=== PATIENT | female | born 1970 | race Caucasian/White ===

== ENCOUNTER 2019-06-01 23:07 | Emergency (ER) | payer BC, SELFPAY ==
[2019-06-01 23:11] VITALS: BP 142/82; PULSE 91; RESP 16; TEMP 36.4; O2SAT 100
--- NOTE | 2019-06-01 23:28 | W.ED.GENAD ---
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 Primary Care Provider: Hillary Leiva ED Provider: Jaycob Arias Home Meds and New Rx's Prescriptions: Continued ferrous sulfate [iron] 325 mg (65 mg iron) Tablet 325 mg PO DAILY RF: 0 Discharge Instructions Additional Instructions: Your exam showed a small amount of bleeding your lab work did not show any concerning findings Follow up with women's wellness within 1 week if you have severe worsening pain, bleeding, lightheaded, chest pain or difficulty breathing return to the emergency department Medical Decision Making 48 yo female who denies chronic medical problems comes in with vaginal bleeding. She states she has been spotting lightly intermittently for 6 months but tonight had 1-2 large clots and more bleeding so came here. Denies dizziness/lightheadedness, sob, has some pelvic cramping but no pain and has no tendeness on abdominal exam. Apepars well systemically on exam. Suspect fibroid vs possible uterine cancer or dysfunctional uterine bleeding. Will obtain lab work and perform speculum exam With nurse data software engineer Bisi Mccray I performed speculum exam and showed small amount of blood coming from closed os no significant blood in vaginal vault or clots. Labs unremarkable and remains stable. FEel she can be d/c'd and f/u with women's wellness this week for further w/u. Return precautions given Differential Diagnosis Differential Diagnosis: fibroid, cancer, dysfunctional uterine bleeding HPI General Mode of arrival: ambulatory. Date/Time Provider Initiated Documentation: 06/01/19 23:10. Limitations to Documentation: no limitations. Information obtained by: patient. History of Present Illness 48 year old F presents to the emergency department with the chief complaint of vaginal bleeding, described as moderate, Patient started experiencing this hour(s) (2) and it has been constant. No relieving factors improve symptom(s), No exacerbating factors reported . Patient notes no other symptoms.. 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 Review of Systems All systems reviewed & are unremarkable except as noted in HPI and below Constitutional Constitutional: Denies chills and Denies fever(s) ENT Ears, Nose, Mouth, and Throat: Denies change in voice Cardiovascular Cardiovascular: Denies chest pain and Denies dyspnea Respiratory Respiratory: Denies cough and Denies dyspnea Gastrointestinal Gastrointestinal: Denies abdominal pain, Denies nausea and Denies vomiting Genitourinary Genitourinary: Denies dysuria Musculoskeletal Musculoskeletal: Denies joint swelling Integumentary/Breasts Skin/Breast: Denies rash PFSH Social History Smoking/Tobacco Use Status: Never Alcohol Intake: never Drug use: Never Substance use type: does not use Do you feel safe at home: Yes Do you feel safe in your relationship?: Yes Exam Const General: no acute distress Orientation: alert HENMT Head: normal to inspection Ears: external ears normal General nose exam: external nose normal Mouth: moist mucous membranes Eyes General: appearance normal, both eyes and all related structures Neck Neck: normal visual inspection Resp Effort & Inspection: normal respiratory effort and able to speak in complete sentences Cardio Rate: regular rate Skin General skin exam: no rashes or lesions noted Neuro General: alert and oriented x3 Extrem General: normal to inspection Psych Mental Status: mental status grossly normal Course Vital Signs Vital signs: Vital Signs Temperature 36.4 C L 06/01/19 23:11 Pulse 91 H 06/01/19 23:11 Respiratory Rate 16 06/01/19 23:11 Blood Pressure 142/82 H 06/01/19 23:11 Pulse Oximetry 100 06/01/19 23:11 Temperature 36.4 C L 06/01/19 23:11 Temperature Source Skin 06/01/19 23:11 Pulse 91 H 06/01/19 23:11 Respiratory Rate 16 06/01/19 23:11 Respiratory Effort 06/01/19 23:17 Blood Pressure 142/82 H 06/01/19 23:11 Pulse Oximetry 100 06/01/19 23:11 Oxygen Delivery Method Room Air 06/01/19 23:11 Oxygen Flow Rate 0 06/01/19 23:11 Pain Level 2 06/01/19 23:17
[2019-06-01 23:39] LABS: Abs Immature Grans 0.02 k/cumm (0.0-0.09); Absolute Basophil Count 0.03 k/cumm (0.0-0.2); Absolute Eosinophil Count 0.18 k/cumm (0.0-0.7); Absolute Lymphocyte Count 2.65 k/cumm (1.2-3.4); Absolute Monocyte Count 0.49 k/cumm (0.11-0.7); Absolute Neutrophil Count 5.14 k/cumm (1.2-6.7); Basophils % 0.4; Eosinophils % 2.1; HCT 34.6 % (36.0-46.0); Immature Grans % 0.2; Lymphocytes % 31.1; Mean Corp. HGB Concentration 31.8 g/dL (32.0-36.0); Mean Corpuscular Volume 78.6 fL (80-95); Mean Platelet Volume 9.8 fL (8.0-11.0); Monocytes % 5.8; Neutrophils % 60.4; Platelet Count 292 x1000/uL (130-400); RBC Distribution Width 16.2 % (11.7-14.6); White Blood Cell Count 8.51 k/cumm (4.4-10.8)
[2019-06-01 23:51] LABS: ALT 26 U/L (14-59); AST 14 U/L (15-37); Albumin 3.6 g/dL (3.4-5.0); Alkaline Phosphatase 64 U/L (46-116); Anion Gap 10.2 mmol/L (3-11); BUN 16 mg/dL (7-18); Bilirubin, Total 0.2 mg/dL (0.2-1.0); CO2 26.8 mmol/L (21.0-32.0); CREATININE 0.96 mg/dL (0.55-1.02); Calcium 8.8 mg/dL (8.5-10.1); Chloride 102 mmol/L (98-107); Glucose 160 mg/dL (74-106); Sodium 139 mmol/L (136-145); Total Protein 7.6 g/dL (6.4-8.2)
[2019-06-01 23:56] LABS: PTT Activated 22.3 sec (21.0-31.4); Prothrombin Time 10.2 sec (9.3-11.0)
== END 2019-06-02 00:10 | disposition home or self-care (01) ==
PROVIDERS: Emergency Provider Emergency Medicine; PCP Nurse Practitioner Family
DX: N93.9 Abnormal uterine and vaginal bleeding, unspecified (principal); R10.2 Pelvic and perineal pain
CPT/HCPCS: 36415; 80053; 81025; 86900; 86901; 99284; 85025; 85610; 85730; 99283

== ENCOUNTER 2019-06-09 13:38 | Outpatient (CLI) | payer BC, SELFPAY ==
[2019-06-09 14:01] LABS: HCT 25.6 % (36.0-46.0); HGB 7.8 g/dL (12.0-15.5)
[2019-06-09 15:19] LABS: TSH (W/Ref FT4) 3.34 uIU/mL (0.36-3.74)
== END 2019-06-09 13:58 ==
PROVIDERS: PCP Nurse Practitioner Family; Visit Provider Nurse Practitioner Family
DX: D64.9 Anemia, unspecified (principal); N93.9 Abnormal uterine and vaginal bleeding, unspecified
CPT/HCPCS: 36415; 84443; 85014; 85018

== ENCOUNTER 2019-06-11 16:17 | Outpatient (CLI) | payer BC, SELFPAY | END 2019-06-11 16:37 | PROVIDERS: PCP Nurse Practitioner Family; Visit Provider Obstetrics & Gynecology Gynecology | DX: D64.9 Anemia, unspecified (principal) | CPT/HCPCS: 36415; 86850; 86900; 86901; 86920 ==

== ENCOUNTER 2019-06-11 16:25 | Outpatient (REF) | payer BC, SELFPAY ==
--- NOTE | 2019-06-11 16:00 | ENDOMET_PTH ---
PATIENT: Garima Acosta LOC: [facility] U#:[id number] AGE/SX: 48/F ROOM: RE06/11/[address]: Paola Evans : 1970 BED: DIS: 06/11/2019 SPEC #: [id number] RECD: 06/11/19 18:07 STATUS: LUZMA REDel #: [id number] RIGOBERTO: 06/11/19 16:[address]: Paola Evans DEPT: Surgical Specimen RECD BY: Samira Eugene ENTERED: 06/11/19 18:07 SP TYPE: Endomet OTHR DR: Hillary Leiva Tissues: 1 - ENDOMETRIUM BX/VILMA Procedures: GROSS AND MICRO LEVEL 4 Comments: [id number]
== END 2019-06-11 16:45 ==
LOC: LBN 16:25
PROVIDERS: PCP Nurse Practitioner Family; Visit Provider Obstetrics & Gynecology Gynecology
DX: N85.01 Benign endometrial hyperplasia (principal); N93.8 Other specified abnormal uterine and vaginal bleeding
CPT/HCPCS: 88305

== ENCOUNTER 2019-06-12 01:15 | Outpatient (RCR) | payer BC, SELFPAY ==
[2019-06-12] VITALS (12 sets, daily range): BP systolic 116–132; BP diastolic 69–79; PULSE 82–100; RESP 18–19; TEMP 36.1–37.3; O2SAT 99–100
[2019-06-12] MEDS: Normal Saline Flush 10 ML SYR 20 ML IVP (08:30)
== END 2019-07-01 23:59 | disposition home or self-care (01) ==
LOC: INF 01:15
PROVIDERS: PCP Nurse Practitioner Family; Visit Provider Obstetrics & Gynecology Gynecology
DX: D64.9 Anemia, unspecified (principal)
CPT/HCPCS: 36415; 36430; 86850; 86900; 86901; 86920; P9016

== ENCOUNTER 2019-06-18 00:58 | Outpatient (CLI) | payer BC, SELFPAY ==
--- NOTE | 2019-06-18 07:50 | DI.US_ITS ---
EXAM: US PELVIS TRANSVAGINAL CLINICAL HISTORY: abnormal vaginal bleeding, N93.9 TECHNIQUE: Ultrasound performed using standard protocol. Transabdominal and transvaginal exams wer e performed. COMPARISON: PELVIS TRANSVAG from 09/06/2016 FINDINGS: The uterus measures 13 x 8.2 x 10.10 cm. No focal fibroids are seen. The endometrial stripe is marked ly thickened at 4.7 cm. There is a small hypoechoic region within the endometrium which could represe nt a small amount of blood. Ovaries are normal in size and appearance. There is no evidence of torsio n. The kidneys are unremarkable. There is no free fluid. IMPRESSION: Markedly thickened endometrium measuring 4.7 cm.
== END 2019-06-18 01:18 ==
PROVIDERS: PCP Nurse Practitioner Family; Visit Provider Nurse Practitioner Family
DX: N93.9 Abnormal uterine and vaginal bleeding, unspecified (principal); R93.89 Abnormal findings on diagnostic imaging of other specified body structures
CPT/HCPCS: 76830; 76856

== ENCOUNTER 2019-08-07 13:47 | Outpatient (CLI) | payer BC, SELFPAY ==
[2019-08-07 14:43] LABS: HCT 39.3 % (36.0-46.0); HGB 12.5 g/dL (12.0-15.5); Mean Corp. HGB Concentration 31.8 g/dL (32.0-36.0); Mean Corpuscular Hemoglobin 25.3 pg (27.0-33.0); Mean Corpuscular Volume 79.4 fL (80-95); Mean Platelet Volume 9.7 fL (8.0-11.0); Platelet Count 276 x1000/uL (130-400); RBC 4.95 m/cumm (4.00-5.20); White Blood Cell Count 8.68 k/cumm (4.4-10.8)
[2019-08-07 15:46] LABS: BUN 16 mg/dL (7-18); CREATININE 0.97 mg/dL (0.55-1.02); Calcium 8.8 mg/dL (8.5-10.1); Chloride 102 mmol/L (98-107); Glucose 177 mg/dL (74-106); Sodium 140 mmol/L (136-145)
== END 2019-08-07 14:07 ==
PROVIDERS: PCP Nurse Practitioner Family; Visit Provider Obstetrics & Gynecology Gynecology
DX: N93.9 Abnormal uterine and vaginal bleeding, unspecified (principal); Z01.818 Encounter for other preprocedural examination; Z01.812 Encounter for preprocedural laboratory examination
CPT/HCPCS: 36415; 80048; 85027

== ENCOUNTER 2019-08-14 11:52 | Day surgery (SDC) | payer BC, SELFPAY ==
[2019-08-07 13:57] VITALS: BP 147/88; PULSE 71; RESP 18; TEMP 37.1; O2SAT 97
[2019-08-14] VITALS (7 sets, daily range): BP systolic 111–151; BP diastolic 43–93; PULSE 75–94; RESP 11–18; TEMP 36.6–36.9; O2SAT 99–100
[2019-08-14] MEDS: Lactated Ringers 1,000 ML 125 ML IV (12:28)
[2019-08-14] MEDS: Bupivacaine 0.25% Pres-Free 30 ML VIAL (13:45)
--- NOTE | 2019-08-14 14:00 | ENDO_PTH ---
PATIENT: Garima Acosta LOC: [facility] U#:[id number] AGE/SX: 49/F ROOM: RE08/14/[address]: Paola Evans : 1970 BED: DIS: 08/14/2019 SPEC #: [id number] RECD: 08/14/19 16:55 STATUS: LUZMA FERGUSON #: [id number] RIGOBERTO: 08/14/19 14:[address]: Paola Evans DEPT: Surgical Specimen RECD BY: Samira Eugene ENTERED: 08/14/19 16:55 SP TYPE: Endo OTHR DR: Hillary Leiva Tissues: 1 - ENDOCERVICAL BX/CURRETTE Procedures: GROSS AND MICRO LEVEL 4 Comments: [id number]
[2019-08-14] MEDS: HYDROcodone 5/Acetaminophen 325 TAB PO (15:34)
--- NOTE | 2019-08-21 12:43 | W.PM.OP ---
Date of service: 08/21/19 Time of Service: 12:43 Operative Note Operative Note DATE OF PROCEDURE: 08/14/19 PRE-OP DIAGNOSIS: Abnormal uterine bleeding Endometrial polyp PROCEDURE: Diagnostic hysteroscopy endometrial polyp removal and hydrothermal endometrial ablation SURGEON: Paola Evans ANESTHESIA: ZONIA (Laryngeal mask anesthesia) ESTIMATED BLOOD LOSS: 10 PATHOLOGY: other (Endometrial polyp to pathology) COMPLICATIONS: None Patient was transported to: PACU Patient's condition: stable Indications: 49-year-old G5, P5 female with history of abnormal uterine bleeding treated with medical therapy with continued breakthrough bleeding and a previously benign endometrial biopsy Findings: Solitary endometrial polyp on a stalk at the uterine fundus with thickened endometrial lining Procedure Description: Patient was taken to the operating room she placed in the dorsal supine position and laryngeal mask anesthesia was administered without difficulty. She was then placed in the dorsal lithotomy in yellowfin stirrups with SCDs in place. She was prepped and draped in the usual sterile fashion a bivalve speculum was placed in the vagina and a paracervical block was performed using quarter percent Marcaine 5 cc in the 4 and 8:00 ectocervical margin respectively. Cervix was sequentially dilated to a maximum of 16 Cruz and a diagnostic hysteroscopy was performed using the HTA hysteroscopic device. A solitary polyp was noted on inspection and the hysteroscope was removed and a pair of polyp forceps were used to grasp the polyp and it was removed intact and sent to pathology. Hysteroscope was then reinserted endometrial cavity inspection was performed cavity assessment was intact and using normal he did normal saline 280 ?C the uterus was treated for 10 minutes with a satisfactory treatment effect noted. Instruments removed the patient's vagina the tenaculum site was noted be hemostatic the vaginal link were intact and had been protected during the procedure. She is placed in dorsal supine position extubated and transported to recovery area in stable condition. All sponge lap needle counts correct x2.
== END 2019-08-14 16:17 | disposition home or self-care (01) ==
PROVIDERS: PCP Nurse Practitioner Family; Visit Provider Obstetrics & Gynecology Gynecology
PROC: (CPT 58353; principal; 2019-08-14 13:00)
DX: N93.9 Abnormal uterine and vaginal bleeding, unspecified (principal); N84.0 Polyp of corpus uteri; D50.9 Iron deficiency anemia, unspecified
CPT/HCPCS: 58563; 88305; J1100; J1885; J2001; J2250; J2405; J2704; J3010

== ENCOUNTER 2019-11-21 20:37 | Outpatient (REF) | payer BC, SELFPAY ==
[2019-11-21 19:17] LABS: Abs Immature Grans 0.02 k/cumm (0.0-0.09); Absolute Basophil Count 0.04 k/cumm (0.0-0.2); Absolute Eosinophil Count 0.07 k/cumm (0.0-0.7); Absolute Lymphocyte Count 1.93 k/cumm (1.2-3.4); Absolute Monocyte Count 0.41 k/cumm (0.11-0.7); Absolute Neutrophil Count 5.11 k/cumm (1.2-6.7); Basophils % 0.5; Eosinophils % 0.9; HCT 41.2 % (36.0-46.0); Immature Grans % 0.3 %; Lymphocytes % 25.5; Mean Corpuscular Hemoglobin 30.1 pg (27.0-33.0); Mean Corpuscular Volume 88.6 fL (80-95); Mean Platelet Volume 10.3 fL (8.0-11.0); Monocytes % 5.4; Neutrophils % 67.4; Platelet Count 242 x1000/uL (130-400); RBC 4.65 m/cumm (4.00-5.20); RBC Distribution Width 13.4 % (11.7-14.6); White Blood Cell Count 7.58 k/cumm (4.4-10.8)
== END 2019-11-21 20:57 ==
LOC: NCHCN 20:37
PROVIDERS: PCP Nurse Practitioner Family; Visit Provider Family Medicine
DX: D64.9 Anemia, unspecified (principal); B99.9 Unspecified infectious disease; K13.70 Unspecified lesions of oral mucosa
CPT/HCPCS: 85025; 86140

== ENCOUNTER 2020-06-11 02:03 | Outpatient (CLI) | payer BC, SELFPAY ==
--- NOTE | 2020-06-11 | DI.MAMMO_ITS ---
EXAM: MAMMO SCREENING CLINICAL HISTORY: SCREENING, FAMILY H/O BREAST CA,Z80.3 TECHNIQUE: Mammograms were interpreted according to the usual protocol including computer analysis w [employer] [facility] CAD system, tomosynthesis and C-view imaging. COMPARISON: 2017 FINDINGS: The breasts are composed of scattered fibroglandular densities, Breast Density category B. No suspicious masses or suspicious microcalcifications are seen. No skin thickening or abnormal axillary lymph nodes are seen. There has been no significant change from prior exams. IMPRESSION: BI-RADS Category 1, Negative mammogram Yearly screening mammography is recommended. Breast Density - Category B, scattered fibroglandular densities. A negative radiographic report should not delay biopsy if a dominant or clinically suspicious mass is present. Up to ten percent of cancers are not identified on mammography. A negative report may reinforce clinical impression. Adenosis and dense breasts may obscure an underlying neoplasm. False positive reports average 6 to 10%. Patient will receive a letter notifying them of these results.
== END 2020-06-11 02:23 ==
PROVIDERS: PCP Nurse Practitioner Family; Visit Provider Nurse Practitioner Family
DX: Z12.31 Encounter for screening mammogram for malignant neoplasm of breast (principal); Z80.3 Family history of malignant neoplasm of breast
CPT/HCPCS: 77063; 77067

== ENCOUNTER 2021-06-27 13:17 | Outpatient (REF) | payer BC, SELFPAY ==
--- NOTE | 2021-06-27 11:05 | SKI_PTH ---
PATIENT: Garima Acosta LOC: [facility]#:[id number] AGE/SX: 50/F ROOM: RE06/27/[address]: Cesar Amaro : 1970 BED: DIS: 06/27/2021 SPEC #: [id number] RECD: 06/27/21 18:32 STATUS: LUZMA REDel #: [id number] RIGOBERTO: 06/27/21 11:[address]: Cesar Amaro DEPT: Surgical Specimen RECD BY: Samira Eugene ENTERED: 06/27/21 18:32 SP TYPE: ELIS DAS DR: Hillary Leiva Tissues: 1 - SKIN BIOPSY(SHAVE/PUNCH) Procedures: SKIN LEVEL 4 Comments: [id number]
[2021-06-27 16:51] LABS: Anion Gap 12.6 mmol/L (3-11); BUN 19 mg/dL (7-18); CO2 24.4 mmol/L (21.0-32.0); CREATININE 0.9 mg/dL (0.55-1.02); Calcium 9.5 mg/dL (8.5-10.1); Chloride 100 mmol/L (98-107); Cholesterol 268 mg/dL (<200); Glucose 228 mg/dL (74-106); HDL Cholesterol 42 mg/dL (40-60); Potassium 4.2 mmol/L (3.5-5.1); Sodium 137 mmol/L (136-145); Triglyceride 456 mg/dL (<150)
[2021-06-27 17:13] LABS: LDL CHOLESTEROL 148 mg/dL (<100)
== END 2021-06-27 13:18 | disposition home or self-care (01) ==
LOC: NCHCN 13:17
PROVIDERS: PCP Nurse Practitioner Family; Visit Provider Family Medicine
DX: E11.9 Type 2 diabetes mellitus without complications (principal); Z00.00 Encounter for general adult medical examination without abnormal findings
CPT/HCPCS: 80048; 80061; 83721; 88305

== ENCOUNTER 2022-05-17 22:25 | Outpatient (REF) | payer BC, SELFPAY ==
[2022-05-17 15:56] LABS: ALT 66 U/L (14-59); AST 28 U/L (15-37); Albumin 4.2 g/dL (3.4-5.0); Alkaline Phosphatase 83 U/L (46-116); Anion Gap 8.2 mmol/L (3-11); BUN 16 mg/dL (7-18); Bilirubin, Total 0.5 mg/dL (0.2-1.0); CO2 29.8 mmol/L (21.0-32.0); CREATININE 0.9 mg/dL (0.55-1.02); Calcium 9.7 mg/dL (8.5-10.1); Calculated LDL 113 mg/dL (<100); Chloride 100 mmol/L (98-107); Cholesterol 210 mg/dL (<200); Estimated GFR 77.88 (mL/min/1.73m2); Glucose 278 mg/dL (74-106); HDL Cholesterol 51 mg/dL (40-60); Sodium 138 mmol/L (136-145); Total Protein 7.7 g/dL (6.4-8.2); Triglyceride 233 mg/dL (<150)
[2022-05-17 15:58] LABS: Hemoglobin A1C 11.1 % (<5.7)
[2022-05-17 16:44] LABS: Microalb ug/mg Crea 54.9 ug/mg Cr
== END 2022-05-17 22:26 | disposition home or self-care (01) ==
LOC: NCHCN 22:25
PROVIDERS: PCP Nurse Practitioner Family; Visit Provider Nurse Practitioner Family
DX: E11.9 Type 2 diabetes mellitus without complications (principal)
CPT/HCPCS: 80053; 80061; 82043; 82570; 83036

== ENCOUNTER 2022-08-23 12:09 | Outpatient (REF) | payer BC, SELFPAY ==
[2022-08-23 16:00] LABS: Anion Gap 7.9 mmol/L (3-11); BUN 17 mg/dL (7-18); CO2 29.1 mmol/L (21.0-32.0); Calcium 9.7 mg/dL (8.5-10.1); Chloride 100 mmol/L (98-107); Estimated GFR 68.21 (mL/min/1.73m2); Glucose 342 mg/dL (74-106); Potassium 4.1 mmol/L (3.5-5.1); Sodium 137 mmol/L (136-145)
[2022-08-23 18:41] LABS: Hemoglobin A1C 10.1 % (<5.7)
== END 2022-08-23 12:10 | disposition home or self-care (01) ==
LOC: NCHCN 12:09
PROVIDERS: PCP Nurse Practitioner Family; Visit Provider Nurse Practitioner Family
DX: E11.9 Type 2 diabetes mellitus without complications (principal)
CPT/HCPCS: 80048; 83036

== ENCOUNTER 2023-08-09 15:47 | Outpatient (REF) | payer BC, SELFPAY ==
[2023-08-09 19:03] LABS: ALT 39 U/L (14-59); AST 17 U/L (15-37); Albumin 3.9 g/dL (3.4-5.0); Alkaline Phosphatase 76 U/L (46-116); Anion Gap 11.2 mmol/L (3-11); BUN 18 mg/dL (7-18); Bilirubin, Total 0.4 mg/dL (0.2-1.0); CO2 25.8 mmol/L (21.0-32.0); Calcium 9.4 mg/dL (8.5-10.1); Calculated LDL 159 mg/dL (<100); Chloride 102 mmol/L (98-107); Cholesterol 276 mg/dL (<200); Estimated GFR 67.78 (mL/min/1.73m2); Glucose 251 mg/dL (74-106); HDL Cholesterol 56 mg/dL (40-60); Potassium 4.2 mmol/L (3.5-5.1); Sodium 139 mmol/L (136-145); Total Protein 7.9 g/dL (6.4-8.2); Triglyceride 307 mg/dL (<150)
[2023-08-09 19:09] LABS: Hemoglobin A1C 9.7 % (<5.7)
== END 2023-08-09 15:48 | disposition home or self-care (01) ==
LOC: NCHCN 15:47
PROVIDERS: PCP Nurse Practitioner Family; Visit Provider Nurse Practitioner Family
DX: E11.9 Type 2 diabetes mellitus without complications (principal); E78.5 Hyperlipidemia, unspecified
CPT/HCPCS: 80053; 80061; 83036